=== PATIENT | male | born 1980 | race Caucasian/White ===

== ENCOUNTER 2022-10-31 10:49 | Outpatient (RCR) | payer BC, SELFPAY ==
[2022-10-30] MEDS: SODIUM CHLORIDE 0.9 % (FLUSH) 10 ML SYRINGE IVF (11:09)
[2022-10-30] MEDS: ERTAPENEM 1 GM inj IVPB (11:09)
[2022-10-30 11:10] VITALS: BP 140/84; PULSE 59; RESP 18; TEMP 36.3; O2SAT 98
[2022-10-31] MEDS: ERTAPENEM 1 GM inj IVPB (10:55)
[2022-10-31 11:00] VITALS: BP 125/76; PULSE 68; RESP 18; TEMP 36.6; O2SAT 98
[2022-10-31] MEDS: SODIUM CHLORIDE 0.9 % (FLUSH) 10 ML SYRINGE IVF (11:05)
== END 2022-11-02 14:50 | disposition home or self-care (01) ==
LOC: MS OUT 10:49
PROVIDERS: Visit Provider Internal Medicine
DX: J86.9 Pyothorax without fistula (principal)
CPT/HCPCS: 96365; 99211; J1335

== ENCOUNTER 2022-11-12 11:00 | Outpatient (RCR) | payer BC, SELFPAY ==
[2022-11-01 11:00] VITALS: BP 120/76; PULSE 66; RESP 16; TEMP 36.4; O2SAT 98
[2022-11-02] MEDS: SODIUM CHLORIDE 0.9 % (FLUSH) 10 ML SYRINGE IVF (14:06)
[2022-11-02] MEDS: ERTAPENEM 1 GM inj IVPB (14:07)
[2022-11-02 14:12] VITALS: BP 111/69; PULSE 64; RESP 18; TEMP 37.1; O2SAT 98
--- NOTE | 2022-11-02 14:20 | PC.NURSE ---
Pt came in for out Pt infusion. VSS. PIIC line asymptomatic and patent.
[2022-11-03 14:29] VITALS: BP 124/83; PULSE 75; RESP 16; TEMP 36.2; O2SAT 99
[2022-11-03] MEDS: ERTAPENEM 1 GM in 0.9 % SODIUM CHLORIDE Mini-bag 100 ML IVPB (14:44)
[2022-11-04] MEDS: ERTAPENEM 1 GM in 0.9 % SODIUM CHLORIDE Mini-bag 100 ML IVPB (15:02)
[2022-11-04 15:10] VITALS: BP 122/75; PULSE 68; RESP 16; TEMP 36.6; O2SAT 98
[2022-11-04 15:20] LABS: Basophils Absolute Auto 0.03 K/uL (0.00-0.30); Basophils Percent Auto 0.6 % (0.0-3.0); Eosinophils Absolute Auto 0.15 K/uL (0.00-0.50); Eosinophils Percent Auto 3.2 % (0.0-7.0); Hematocrit 55.5 % (37.0-53.0); Hemoglobin* 17.6 gm/dL (13.5-17.5); Immature Granulocytes Abs Auto 0.03 K/uL (0.00-0.30); Immature Granulocytes Pct Auto 0.6 %; Lymphocytes Absolute Auto 1.54 K/uL (0.90-2.90); Mean Corpuscular HGB Conc 32 gm/dL (32-36); Mean Corpuscular Hemoglobin 26 pg (26-34); Mean Corpuscular Volume 83 fL (80-100); Monocytes Percent Auto 6.7 % (0.0-11.0); Neutrophils Percent Auto 55.9 % (42.0-72.0); Platelet Count* 446 K/uL (140-440); RDW Coefficient of Variation % 16.7 % (11.5-15.5); Red Blood Count 6.71 m/uL (4.30-5.90); White Blood Count* 4.66 K/uL (4.50-11.00)
[2022-11-04 15:22] LABS: Slide Review Reflex No
[2022-11-04 15:29] LABS: Alanine Aminotransferase* 38 U/L (4-50); Creatinine* 0.7 mg/dL (0.5-1.5); Estimated Glomerular Filt Rate 117 ml/min
[2022-11-04] MEDS: SODIUM CHLORIDE 0.9 % (FLUSH) 10 ML SYRINGE IVF (15:42)
[2022-11-05 14:24] VITALS: BP 123/78; PULSE 78; RESP 16; TEMP 36.4; O2SAT 97
[2022-11-05] MEDS: ERTAPENEM 1 GM in 0.9 % SODIUM CHLORIDE Mini-bag 100 ML IVPB (14:47)
[2022-11-06 13:55] VITALS: BP 112/67; PULSE 63; RESP 16; TEMP 36.6; O2SAT 96
[2022-11-06] MEDS: SODIUM CHLORIDE 0.9 % (FLUSH) 10 ML SYRINGE IVF ×2 (13:55→14:30)
[2022-11-06] MEDS: ERTAPENEM 1 GM in 0.9 % SODIUM CHLORIDE Mini-bag 100 ML IVPB (13:58)
[2022-11-06 14:32] VITALS: BP 112/78; PULSE 692; RESP 16; TEMP 36.6; O2SAT 98
--- NOTE | 2022-11-06 14:44 | PC.NURSE ---
Ambulatory d/c at 1434 after ertapenam infused via PICC located in [facility]UST. Eupneic, NAD, VSS and pt denies pain.
[2022-11-07 14:05] VITALS: BP 113/66; PULSE 62; RESP 16; TEMP 36.5; O2SAT 98
[2022-11-07] MEDS: ERTAPENEM 1 GM in 0.9 % SODIUM CHLORIDE Mini-bag 100 ML IVPB (14:08)
[2022-11-07] MEDS: 0.9 % SODIUM CHLORIDE 250 ml IV (14:08)
[2022-11-07] MEDS: SODIUM CHLORIDE 0.9 % (FLUSH) 10 ML SYRINGE IVF (14:08)
[2022-11-08 12:45] VITALS: BP 132/76; PULSE 61; RESP 16; TEMP 36.5; O2SAT 98
[2022-11-08] MEDS: ERTAPENEM 1 GM in 0.9 % SODIUM CHLORIDE Mini-bag 100 ML IVPB (12:55)
[2022-11-08] MEDS: SODIUM CHLORIDE 0.9 % (FLUSH) 10 ML SYRINGE IVF ×2 (12:55→13:30)
[2022-11-08] MEDS: 0.9 % SODIUM CHLORIDE 250 ml IV (12:55)
[2022-11-09 11:54] VITALS: BP 130/76; PULSE 70; RESP 16; TEMP 36.2; O2SAT 99
[2022-11-09] MEDS: SODIUM CHLORIDE 0.9 % (FLUSH) 10 ML SYRINGE IVF (12:04)
[2022-11-09] MEDS: 0.9 % SODIUM CHLORIDE 250 ml IV (12:04)
[2022-11-09] MEDS: ERTAPENEM 1 GM in 0.9 % SODIUM CHLORIDE Mini-bag 100 ML IVPB (12:04)
[2022-11-10 10:03] VITALS: BP 135/81; PULSE 77; RESP 16; TEMP 36.4; O2SAT 98
[2022-11-10] MEDS: 0.9 % SODIUM CHLORIDE 250 ml IV (10:07)
[2022-11-10] MEDS: ERTAPENEM 1 GM in 0.9 % SODIUM CHLORIDE Mini-bag 100 ML IVPB (10:07)
[2022-11-10] MEDS: SODIUM CHLORIDE 0.9 % (FLUSH) 10 ML SYRINGE IVF (10:07)
[2022-11-11 11:11] VITALS: BP 113/68; PULSE 67; RESP 16; TEMP 36.4; O2SAT 98
[2022-11-11 11:15] LABS: Basophils Absolute Auto 0.05 K/uL (0.00-0.30); Basophils Percent Auto 0.7 % (0.0-3.0); Eosinophils Absolute Auto 0.22 K/uL (0.00-0.50); Eosinophils Percent Auto 3.1 % (0.0-7.0); Hemoglobin* 12.4 gm/dL (13.5-17.5); Immature Granulocytes Abs Auto 0.01 K/uL (0.00-0.30); Immature Granulocytes Pct Auto 0.1 %; Lymphocytes Absolute Auto 2.63 K/uL (0.90-2.90); Lymphocytes Percent Auto 36.6 % (20-44); Mean Corpuscular HGB Conc 32 gm/dL (32-36); Mean Corpuscular Hemoglobin 26 pg (26-34); Mean Corpuscular Volume 83 fL (80-100); Monocytes Percent Auto 6.3 % (0.0-11.0); Neutrophils Absolute Auto 3.82 K/uL (1.7-7.0); Neutrophils Percent Auto 53.2 % (42.0-72.0); Platelet Count* 495 K/uL (140-440); RDW Coefficient of Variation % 15.5 % (11.5-15.5); Red Blood Count 4.69 m/uL (4.30-5.90); White Blood Count* 7.18 K/uL (4.50-11.00)
[2022-11-11 11:17] LABS: Slide Review Reflex No
[2022-11-11 11:33] LABS: Alanine Aminotransferase* 28 U/L (4-50); Creatinine* 0.7 mg/dL (0.5-1.5); Estimated Glomerular Filt Rate 117 ml/min
[2022-11-11] MEDS: ERTAPENEM 1 GM in 0.9 % SODIUM CHLORIDE Mini-bag 100 ML IVPB (11:36)
[2022-11-11] MEDS: 0.9 % SODIUM CHLORIDE 250 ml IV (11:36)
[2022-11-12 10:30] VITALS: BP 110/73; PULSE 80; RESP 14; TEMP 36.6; O2SAT 98
[2022-11-12] MEDS: ERTAPENEM 1 GM in 0.9 % SODIUM CHLORIDE Mini-bag 100 ML IVPB (10:46)
[2022-11-12] MEDS: SODIUM CHLORIDE 0.9 % (FLUSH) 10 ML SYRINGE IVF (10:47)
[2022-11-12] MEDS: 0.9 % SODIUM CHLORIDE 250 ml IV (10:47)
--- NOTE | 2022-11-15 08:52 | ONC.NURNOTE ---
Call from [place] [phone] Eric has completed his antibiotic course on 11/12/22 and his PICC has been removed
== END 2023-04-30 23:59 | disposition home or self-care (01) ==
LOC: CCIC 11:00
PROVIDERS: Visit Provider Clinical Nurse Specialist
DX: J86.9 Pyothorax without fistula (principal); Z87.891 Personal history of nicotine dependence
CPT/HCPCS: 36415; 36592; 82565; 84460; 85025; 96365; 99211; A4221; J1335; J7050